=== PATIENT | male | born 1965 | race Hispanic/Latino ===

== ENCOUNTER → 2018-05-18 | Day surgery (SDC) | payer OTHER ==
[~2018-05-18] MED LIST: BUPIVACAINE HCL 0.5% INJ 30 ML VIAL INJ ONE; CEFAZOLIN SOD 2 GM/D5W 50ML 50 ML IV ONE; DEXAMETHASONE SOD PHOS INJ 4 MG/ML VIAL ONE; FENTANYL CITRATE/PF 100MCG/2 ML INJ ONE; GLYCOPYRROLATE INJ 1MG/ 5 ML SYR ONE; KETOROLAC TROMETHAMINE 30 MG/ML VIAL ONE; LIDOCAINE HCL 2% LOCAL INJ 5 ML SDV VIAL INJ ONE; MEPERIDINE HCL INJ 50 MG/ML INJ ONE; MIDAZOLAM HCL 2 MG/2 ML VIAL ONE; MUPIROCIN 2% OINT 22 GM TUBE ONE; ONDANSETRON HCL INJ 2 MG/ML VIAL ONE; PROPOFOL IV EMULSION 10 MG/ML 20 ML VIAL ONE; SEVOFLURANE INHAL SOLN 250 ML PEN BTL ONE
--- NOTE | 2018-05-18 10:53 | Operative Report ---
DATE OF PROCEDURE: May 18, 2018 PREOPERATIVE DIAGNOSES 1. Posterior tibial PTTD, stage 3. 2. Coalition, subtalar joint, posterior facet. 3. 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 4. Equinus gastrocnemius, right foot. 5. Posterior tibial tendon longitudinal tear, right foot. PARTITION MAKING MACHINE OPERATOR: Giorgi Gallego DPM ANESTHESIA: General anesthetic with local block consisting of 20 mL given postop. COMPLICATIONS: None. PROCEDURE: Stable. MATERIALS: Bioform 10 mL, AlloWrap, DS, wet 2 x 4 for posterior tibial tendon, Bioform for augmentation of the arthrodesis. T-N fusion 4.0 x36mm screw. An EC staple, lot number [id number]. Subtalar fusion screw 7.0x 80 mm screw. PROCEDURES 1. Subtalar joint fusion. 2. Talonavicular fusion. 3. Gastrocnemius resection. 4. Resection of coalition of subtalar joint. 5. Repair of posterior tibial tendon with augmentation with a AlloWrap. 6. Application of posterior splint. 7. Use of human allograft. PATHOLOGY: None. PROCEDURE IN DETAIL: Under mild sedation, the patient was brought to the operating room and placed on the operating table in the supine position. Following IV sedation, anesthesia was obtained with a general anesthetic. At this point, the foot was scrubbed, prepped and draped in the usual aseptic manner. The pneumatic thigh tourniquet was inflated to 350 mmHg. The leg was lowered to the table. Subtalar fusion, right. Attention was then directed to the medial aspect of the right foot where a curvilinear incision was made from the posterior and inferior distal aspect of the medial malleolus curving down into the navicular cuneiform joint. The incision was deepened via sharp and blunt dissection taking care to retract and cauterize neurovascular structures as necessary. Special care was taken not to disrupt the deltoid ligament on the medial aspect of the foot. Once the incision was deepened down to the level of the posterior tibial tendon, at this moment the posterior tibial tendon seemed to be denuded. There seemed to be nonviable tissue. All nonviable tissue was removed. The tendon was then elevated, and it was augmented with an AlloWrap graft. This was done after the subtalar NT infusion. Attention was then directed to the subtalar joint where once the joint was isolated clinically and with the use of intraoperative fluoroscopy, the joint was prepared for arthrodesis. All cartilage was removed. Once all cartilage was removed and the joint was prepared, it was then fenestrated with a 2-0 drill popping the subchondral plane and preparing the whole subtalar joint in order to promote arthrodesis. At this point, the Bioform was impacted into it. A 7-0 screw was used with the subtalar joint in a neutral position. There was noted to be adequate alignment clinically. With the use of intraoperative fluoroscopy, the 2nd metatarsal was directly down into the tibial crest. There was noted to be adequate completion clinically, and with the intraoperative fluoroscopy with a 7-0, 80-mm screw following standard AO fixation. Attention was then directed to the talonavicular joint where the joint was noted and prepared in order for arthrodesis. The joint was also fenestrated with a 2-0 drill popping through the subchondral joint down to clean, viable bleeding bone. Bioform was then inserted in order to promote healing of the area. A 4-0 screw times 36, and an 18-mm staple was then used in order to fuse the TN joint. There was noted to be adequate compression clinically and with the use of intraoperative fluoroscopy. At this point, the area was then flushed with copious amounts of normal sterile saline solution. A Roberta type of Gastroc was performed before beginning the fusion in order to release the contracture of the Ankle and ST joint and in order to be able to locate the joints back into anatomical position. Please note that when the subtalar joint was being prepared for fusion, there was a coalition noted at the posterior facet of the joint. The coalition was resected also in prepare the joint for arthrodesis. The areas were then flushed with copious amounts of normal sterile saline solution. The areas were then flushed with sterile saline solution. The area was then closed closing the deepest layers with 2-0 Vicryl, 3-0 Vicryl, 4-0 Vicryl, and then felipe for the medial aspect, and nylon for the posterior aspect of the aponeurosis of the Achilles tendon. All incisions were then dressed with sterile compressive dressing consisting of Adaptic, 4 x 4's, Kerlix, and an Quang bandage. The tourniquet had been deflated. A TLS drain had been applied. There was noted to be hyperemic response to all digits. The patient tolerated the procedure and anesthesia well without complications. Was transferred to the recovery room with vital signs stable and vascular status intact to both feet. The patient will be discharged home when he meets criteria. He was given instructions to be strictly nonweightbearing, and to ice and elevate the foot while at rest. Follow up with me in the office, and to call the office if there are any questions, concerns or any problems arise. Job#: [id number] BEAU DILLARD
== END | disposition home or self-care (01) ==
LOC: OR 05:21
PROVIDERS: ATTEND Podiatrist Foot & Ankle Surgery
DX: M19.071 Primary osteoarthritis, right ankle and foot (principal); S96.811A Strain of other specified muscles and tendons at ankle and foot level, right foot, initial encounter; M76.821 Posterior tibial tendinitis, right leg; M21.6X1 Other acquired deformities of right foot; I45.10 Unspecified right bundle-branch block; R00.1 Bradycardia, unspecified; X58.XXXA Exposure to other specified factors, initial encounter; Z01.810 Encounter for preprocedural cardiovascular examination
CPT/HCPCS: 27687; 28200; 28725; 28740; 76001; 93005; C1713 ×4; J1100; J1885; J2001; J2175; J2250; J2405; J3490; Q4150

== ENCOUNTER → 2019-01-08 | Day surgery (SDC) | payer OTHER ==
[~2019-01-08] MED LIST changes: +ACETAMINOPHEN 1000 MG/100 ML IV ONE; +BUPIVACAINE 0.25% 30ML SDV INJ ONE; -BUPIVACAINE HCL 0.5% INJ 30 ML VIAL INJ ONE; -GLYCOPYRROLATE INJ 1MG/ 5 ML SYR ONE; -MEPERIDINE HCL INJ 50 MG/ML INJ ONE; -ONDANSETRON HCL INJ 2 MG/ML VIAL ONE; +ONDANSETRON HCL INJ 2MG/ML 2ML 2 MG/ML VIAL ONE; +PERCOCET 10-321 EACH PO
[2019-01-08 10:25] VITALS: BP 120/82
--- NOTE | 2019-01-08 17:36 | Operative Report ---
DATE OF PROCEDURE: 01/08/2019 SURGEON: Brianna Claros DPM PREOPERATIVE DIAGNOSES: 1. Hallux abductovalgus, right foot. 2. Hallux interphalangeus, right foot. 3. Plantarflexed elongated second right. POSTOPERATIVE DIAGNOSES: 1. Hallux abductovalgus, right foot. 2. Hallux interphalangeus, right foot. 3. Plantarflexed elongated second right. PROCEDURES: 1. Decompression first metatarsal osteotomy, right foot. 2. Lucian osteotomy, right foot. 3. Plantarflexory decompression osteotomy, second right. 4. Application of human allograft to prevent adhesions, to decrease the inflammatory response, and to decrease chance of adhesions. COMPLICATIONS: None. CONDITION: Stable. HEMOSTASIS: Pneumatic ankle tourniquet. ESTIMATED BLOOD LOSS: Less than 10 mL. MATERIALS: 1. A 12 x 10 x 10 mm compression staple. 2. Allograft 4 cm, lot [id number], expiration April 11, 2020. 3. Screw sets are 2.0 x 16, 2.5 x 16, and 2.7 x 20 snap screw. PROCEDURE IN DETAIL: Under normal sedation, the patient was brought to the operating room and placed on the operating table in supine position. Following IV sedation, anesthesia was obtained with a general anesthetic. At this point, the right foot was scrubbed, prepped and draped in the usual aseptic manner. A pneumatic ankle was inflated to 250 mmHg and the leg was lowered to the table. First metatarsal decompression osteotomy: Attention was then directed to the medial and dorsal aspect of the right foot where a linear incision was made overlying the first metatarsophalangeal joint. The incision was deepened via sharp and blunt dissection down to the level of the joint. At this point, a linear capsulotomy was then performed. There was noted to be a large amount of synovitis at the first MPJ and some osteophytes were noted medially. Utilizing an oscillating saw, the medial exostosis was then removed. Then a first metatarsal decompression osteotomy was performed in order to decompress the first MPJ. Two screws were used to fix it, 2.0 x 16 and 2.5 x 16. There was noted to be good compression clinically with the use of intraoperative fluoroscopy. Lucian osteotomy: Attention was then directed to the proximal phalanx where the capsule was reflected off the first phalanx and Lucian osteotomy was then performed through and through. It was then secured utilizing 12 x 10 x 10 mm staple. There was noted to be adequate alignment clinically with the use of intraoperative fluoroscopy. Tatum osteotomy second: Attention was then directed to the dorsal aspect of the second where linear incision was made overlying the second and linear capsulotomy was then performed, taking care to retract all cardiovascular and neurovascular structures as necessary. It was deepened down to the level of the metatarsal and large amount of synovial tissue was noted from the area. Unviable tissue was removed and dorsiflexed ray osteotomy was performed to decrease the compression on the osteotomy. It was then fixated utilizing a 2.7 x 20 snap screw. There was noted to be adequate compression clinically with the use of intraoperative fluoroscopy. A K-wire was then inserted in order to keep the second MPJ in an anatomical position while healing. All areas were then flushed with copious amount of normal sterile solution. An allograft was then inserted into the incisions in order to prevent adhesions and to promote healing of the areas. The areas were then closed, closing the capsule with 2-0 Vicryl, 3-0 Vicryl, and 4-0 nylon. Alida dressing was applied consisting of antibiotic ointment, 4x4, Kerlix, and an Quang bandage. The tourniquet was deflated and there was noted to be hyperemic response to all the digits. The patient tolerated the procedure and anesthesia well without complications, was transported to the recovery room with vital signs stable and vascular status intact to both feet. The patient will be discharged home when he meets the criteria. He was given instructions to be weightbearing with the use of a postop shoe. He will use his compression pumps to prevent the DVT. He also has a history of PE. He will begin to use Lovenox when he gets home today. He knows the signs and symptoms of DVT and PE. He will call the office if any questions, concerns, or new problems arise. LUCHO Guevara/FUAD /[id number]
--- OUTSIDE RECORDS SUMMARY | 2019-01-09 10:19 | XMS REPORT | Clinical Summary ---
Author Author [employer] [facility] [employer] Address Unknown Phone Unavailable Care Team Providers Care President & Founder Name Role Phone Shira Logan DO PCP Allergies No Known Allergies Medications End Date Status Medication Sig Dispensed Refills Start Date Active HYDROcodone-acetaminophen Take 1 tablet 0 (NORCO) 5-325 mg per by mouth tablet every 6 (six) hours as needed for moderate pain. Active oxyCODone-acetaminophen Take 1 tablet 0 (PERCOCET) 10-325 mg per by mouth tablet every 4 (four) hours as needed for moderate pain. Active cephalexin (KEFLEX) 500 Take 500 mg 0 05/18/201 MG capsule by mouth 2 8 (two) times a day. 05/27/2018 Discontinued enoxaparin (LOVENOX) 40 Inject 40 mg 0 mg/0.4 mL syringe under the skin daily. 06/26/2018 rivaroxaban (XARELTO) 15 Follow 1 Package 0 05/27/201 mg (42)- 20 mg (9) package 8 instructions Active Problems Problem Noted Date Pulmonary embolus 05/24/2018 Encounters Care Team Description Date Type Specialty Nagi Nayak, PharmD 05/28/2018 Patient Quality Outreach Jimbo Bowers MD Bavare, Arusha Amod, MD Patel, Sarahi Reina MD Other acute pulmonary embolism without acute cor pulmonale (Primary Dx) 05/23/2018 [facility] General Internal Medicine - Encounter 05/27/2018 after 01/08/2018 Social History Date Tobacco Use Types Packs/Day Years Used Never Smoker Smokeless Tobacco: Never Used Alcohol Use Drinks/Week oz/Week Comments No Sex Assigned at Date Recorded Not on file Industry Job Start Date Occupation Not on file Not on file Not on file Travel End Travel History Travel Start No recent travel history available. Last Filed Vital Signs Time Taken Vital Sign Reading 05/27/2018 7:03 AM CDT Blood Pressure 131/83 05/27/2018 7:03 AM CDT Pulse 71 05/27/2018 7:03 AM CDT Temperature 36.8 C (98.2 F) 05/27/2018 7:03 AM CDT Respiratory Rate 20 05/27/2018 7:03 AM CDT Oxygen Saturation 97% - Inhaled Oxygen - Concentration 05/23/2018 11:13 PM CDT Weight 94.3 kg (208 lb) 05/23/2018 11:13 PM CDT Height 172.7 cm (5' 8") 05/23/2018 11:13 PM CDT Body Mass Index 31.63 Plan of Treatment Health Maintenance Due Date Last Done Comments COLON CANCER SCREENING 2017 SHINGLES VACCINES (#1) 2017 INFLUENZA VACCINE 06/13/2018 Procedures Comments Procedure Name Priority Date/Time Associated Diagnosis CV ECHO 2D FOLLOW UP OR STAT 05/26/2018 LIMITED STUDY 1:23 PM CDT ANTI XA, UNFRACTIONATED Routine 05/25/2018 4:30 AM CDT HC COMPLETE BLD COUNT Routine 05/25/2018 W/AUTO DIFF 4:30 AM CDT ANTI XA, UNFRACTIONATED Routine 05/24/2018 8:20 PM CDT US DUPLEX VENOUS LOWER Routine 05/24/2018 EXTREMITY BILATERAL 5:30 PM CDT ANTI XA, UNFRACTIONATED Routine 05/24/2018 1:27 PM CDT ECHOCARDIOGRAM 2D Routine 05/24/2018 COMPLETE W MMODE SPECTRAL 11:55 AM CDT COLOR DOPPLER ([id number]) TROPONIN STAT 05/24/2018 8:45 AM CDT B NATRIURETIC PEPTIDE Routine 05/24/2018 8:[address] ANGIOGRAM PE CHEST STAT 05/24/2018 2:40 AM CDT ECG 12-LEAD STAT 05/24/2018 2:05 AM CDT ZZESTIMATED GFR STAT 05/24/2018 12:20 AM CDT VENOUS BLOOD GAS STAT 05/24/2018 12:20 AM CDT MAGNESIUM LEVEL STAT 05/24/2018 12:20 AM CDT PHOSPHORUS LEVEL STAT 05/24/2018 12:20 AM CDT BASIC METABOLIC PANEL STAT 05/24/2018 12:20 AM CDT URINALYSIS SCREEN AND STAT 05/24/2018 MICROSCOPY, WITH REFLEX 12:20 AM CDT TO CULTURE TYPE AND SCREEN Routine 05/24/2018 12:20 AM CDT PARTIAL THROMBOPLASTIN STAT 05/24/2018 TIME (PTT) 12:20 AM CDT PROTHROMBIN TIME WITH INR STAT 05/24/2018 12:20 AM CDT HC COMPLETE BLD COUNT STAT 05/24/2018 W/AUTO DIFF 12:20 AM CDT URINE CULTURE STAT 05/24/2018 12:20 AM CDT BLOOD CULTURE, AEROBIC & Routine 05/24/2018 ANAEROBIC 12:20 AM CDT XR CHEST 1 VW PORTABLE STAT 05/24/2018 12:05 AM CDT ECG ED PRELIMINARY Routine 05/23/2018 INTERPRETATION 11:43 PM CDT MT CRITICAL CARE, E/M Routine 05/23/2018 30-74 MINUTES 11:43 PM CDT after 01/08/2018 Results * Echocardiogram 2d limited (05/26/2018 1:23 PM CDT) [facility]ative [facility] [id number] [facility], [facility] [address], [place] [address] Pat.Name:PHUONG HARDIN.ID:[id number] .Date: 05/26/2018 Refer.MD:SARAHI DUTTA MD Exam Time: 11:04:00 AM Study Type:Routine Echo Height:68inWeight:208lb BSA: 2.08 m2 DOBAge:1965,52Y Sex: MALEBP:128/85 HR:74 bpmSonogrphr: ASHVIN Gregory. Stat.:Inpatient Room:[facility] Study Status:Final Echo Event ID:[id number] Order ID:[id number] Reason for Study:RIGHT HEART STRAIN Procedures:Portable, Stat, 2D Echo Limited Race:C SUMMARY: Limited mostly 2D study. -LV EF is normal. Estimated EF is 60-64%. -RV size is upper limits of normal. RV systolic function is normal. -Insufficient TR jet to estimate PA systolic pressure. FINDINGS: LV: LV size is normal. LV EF is normal. Overall wall motion is normal.Estimated EF is 60-64%. RV: RV size is upper limits of normal. RV systolic function is normal. LA: LA size is normal. RA: RA size is normal. AO: Aortic root diameter is normal. REENA: No pericardial effusion. AV: No structural AV abnormalities noted. MV: No structural MV abnormalities noted. PV: Pulmonic valve not well seen. TV: No structural TV abnormalities noted. Villagran: Unable to assess diastolic function. Other:Insufficient TR jet to estimate PA systolic pressure. MEASUREMENTS: 2D Parasternal Long Regina LVOT 2 cmLA Ds3.2 cm LVIDd4.8 cmIndex2.3 cm/m Ao An2 cm LVIDs2.7 cmAo Rtd 3.5 cm Index1.7 cm/m LV%fs 43.5 % LV Epls091.8 g(122-174) IVSd 1.2 cmLVM Eytpn666.2 g/m2 LVPWd1.2 cmRWT0.5 LA Sng Plane LA Area 17.9 cm2(8.8-23.4) LA Vol53.1 ml Index25.5 ml/m LA LngAx 4.8 cm RA Sng Plane RA Area 20.9 cm2(8.3-19.5) RA Vol66 ml Index31.7 ml/m RA LngAx 5.4 cm Signed 05/26/2018 03:14 PM Richy Reno M.D. Procedure Note Interface, Radiology Results In - 05/26/2018 3:14 PM CDT Echocardiography Report [id number]Name: PHUONG HARDIN Pat.ID: [id number] .Date: 05/26/2018 Refer.MD: SARAHI DUTTA MD Exam Time: 11:04:00 AM Study Type:Routine Echo Height: 68in Weight: 208lb BSA: 2.08 m2 Age: 13 1965,52Y Sex: MALE BP: 128/85 HR: 74 bpm Sonogrphr: ASHVIN Gregory Pat. Stat.:Inpatient Room: [facility] Study Status:Final Echo Event ID:[id number] Order ID: [id number] Reason for Study:RIGHT HEART STRAIN Procedures:Portable, Stat, 2D Echo Limited Race: C SUMMARY: Limited mostly 2D study. -LV EF is normal. Estimated EF is 60-64%. -RV size is upper limits of normal. RV systolic function is normal. -Insufficient TR jet to estimate PA systolic pressure. FINDINGS: LV: LV size is normal. LV EF is normal. Overall wall motion is normal. Estimated EF is 60-64%. RV: RV size is upper limits of normal. RV systolic function is normal. LA: LA size is normal. RA: RA size is normal. AO: Aortic root diameter is normal. REENA: No pericardial effusion. AV: No structural AV abnormalities noted. MV: No structural MV abnormalities noted. PV: Pulmonic valve not well seen. TV: No structural TV abnormalities noted. Villagran: Unable to assess diastolic function. Other: Insufficient TR jet to estimate PA systolic pressure. MEASUREMENTS: 2D Parasternal Long Regina LVOT 2 cm LA Ds 3.2 cm LVIDd 4.8 cm Index 2.3 cm/m Ao An 2 cm LVIDs 2.7 cm Ao Rtd 3.5 cm Index 1.7 cm/m LV%fs 43.5 % LV Mass 216.8 g (122-174) IVSd 1.2 cm LVM Index 104.2 g/m2 LVPWd 1.2 cm RWT 0.5 LA Sng Plane LA Area 17.9 cm2 (8.8-23.4) LA Vol 53.1 ml Index 25.5 ml/m LA LngAx 4.8 cm RA Sng Plane RA Area 20.9 cm2 (8.3-19.5) RA Vol 66 ml Index 31.7 ml/m RA LngAx 5.4 cm Signed 05/26/2018 03:14 PM Richy Reno M.D. Performing Organization Address City/State/Zipcode Phone Number [facility] [address] [place] [address] * Anti Xa, unfractionated (05/25/2018 4:30 AM CDT) Only the most recent of 3 results within the time period is included. Anti Xa, unfractionated 0.41Comment: Therapeutic 0.30 - 0.70 U/mL [facility] DEPARTMENT OF Range: 0.30 - 0.70 U/mL PATHOLOGY AND GENOMIC MEDICINE Specimen Blood Performing Organization Address City/State/Zipcode Phone Number [facility] DEPARTMENT OF [address] [place] [address] PATHOLOGY AND GENOMIC MEDICINE * CBC with platelet and differential (05/25/2018 4:30 AM CDT) Only the most recent of 2 results within the time period is included. WBC 8.57 4.50 - 11.00 k/uL [facility] DEPARTMENT OF PATHOLOGY AND GENOMIC MEDICINE RBC 4.71 4.40 - 6.00 m/uL [facility] DEPARTMENT OF PATHOLOGY AND GENOMIC MEDICINE HGB 13.6 (L) 14.0 - 18.0 g/dL [facility] DEPARTMENT OF PATHOLOGY AND GENOMIC MEDICINE HCT 39.4 (L) 41.0 - 51.0 % [facility] DEPARTMENT OF PATHOLOGY AND GENOMIC MEDICINE MCV 83.7 82.0 - 100.0 fL [facility] DEPARTMENT OF PATHOLOGY AND GENOMIC MEDICINE MCH 28.9 27.0 - 34.0 pg [facility] DEPARTMENT OF PATHOLOGY AND GENOMIC MEDICINE MCHC 34.5 31.0 - 37.0 g/dL [facility] DEPARTMENT OF PATHOLOGY AND GENOMIC MEDICINE RDW - SD 40.9 37.0 - 55.0 fL [facility] DEPARTMENT OF PATHOLOGY AND GENOMIC MEDICINE MPV 10.2 8.8 - 13.2 fL [facility] DEPARTMENT OF PATHOLOGY AND GENOMIC MEDICINE Platelet count 284 150 - 400 k/uL [facility] DEPARTMENT OF PATHOLOGY AND GENOMIC MEDICINE Nucleated RBC 0.00 /100 WBC [facility] DEPARTMENT OF PATHOLOGY AND GENOMIC MEDICINE Neutrophils 64.4 39.0 - 69.0 % [facility] DEPARTMENT OF PATHOLOGY AND GENOMIC MEDICINE Lymphocytes 20.3 (L) 25.0 - 45.0 % [facility] DEPARTMENT OF PATHOLOGY AND GENOMIC MEDICINE Monocytes 8.8 0.0 - 10.0 % [facility] DEPARTMENT OF PATHOLOGY AND GENOMIC MEDICINE Eosinophils 3.3 0.0 - 5.0 % [facility] DEPARTMENT OF PATHOLOGY AND GENOMIC MEDICINE Basophils 0.7 0.0 - 1.0 % [facility] DEPARTMENT OF PATHOLOGY AND GENOMIC MEDICINE Immature granulocytes 2.5 (H)Comment: "Immature 0.0 - 1.0 % [facility] DEPARTMENT OF granulocytes" (promyelocytes, PATHOLOGY AND myelocytes, metamyelocytes) GENOMIC MEDICINE Specimen Blood Performing Organization Address City/State/Zipcode Phone Number [facility] DEPARTMENT OF [address] [place] [address] PATHOLOGY AND GENOMIC MEDICINE * Pv duplex venous lower extremity (05/24/2018 5:30 PM CDT) Narrative Performed At [facility] Vascular Ultrasound Laboratory Lower Extremity Venous Report [id number] [facility] [address], [place] [address] Pat.Name:PHUONG HARDIN Pat.ID:[id number] St.Date: 05/24/2018 Refer.MD:SARAHI DUTTA MD Exam Time: 5:01:00 PMStudy Type:LE Venous DOBAge:1965,52Y Sex: MALE Sonogrphr: RADHA Duarte RCS Pat. Stat.:Inpatient Room:[address] TapeVol: GAUTAM, CPT - 4: 03853 Echo Event ID:[id number] Order ID:[id number] Reason for Study:Evaluate for DVT. Pulmonary embolism and shortness of breath. Procedures:Colorflow, Grayscale/2D, Pulsed wave Doppler Race:C SUMMARY: DUPLEX SCAN OBSERVATIONS Deep VeinsSuperficial Veins RightLeft RightLeft GSV (prox) NormalNormal CFV Normal Normal (above knee) Femoral Normal Normal GSV (dist) Normal Normal Profunda Normal Normal (below knee) Popliteal Normal Normal PT (prox) Obstructed NormalSSV Normal Normal PT (dist) Not Visualized Normal Peroneal Obstructed Normal RIGHT:One of the pairedposterior tibial and peroneal veins are dilated and non-compressible with echolucent material filling the lumen; color flow and Doppler signals are absent. The remaining visualized veins are patent with good compressibility, color flow and Doppler signals. LEFT: There is normal compressibility with no evidence of echogenic material noted within the lumen of the visualized veins. Colorflow and Doppler signals are normal. PRELIMINARY FINDINGS 1. Total acute deep vein thrombosis of one of the pairedposterior tibial and peroneal veins in the right lower extremity. 2. Preliminary results called to MAHENDRA Orr @ 0136 on 05/24/18. PHYSICIAN INTERPRETATION Venous examination of the both lower extremities demonstrated acute deep vein thrombosis of one of the paired right posterior tibial and right peroneal vein. Signed 05/25/2018 03:37 AM Domingo Pemberton MD, RPVI Procedure Note Interface, Radiology Results In - 05/25/2018 3:37 AM CDT Vascular Ultrasound Laboratory Lower Extremity Venous Report [address] [place] [address] Pat.Name: PHUONG HARDIN Pat.ID: [id number] .Date: 05/24/2018 Refer.MD: SARAHI DUTTA MD Exam Time: 5:01:00 PM Study Type:LE Venous Age: 11 1965,52Y Sex: MALE Sonogrphr: RADHA Duarte RCS Pat. Stat.:Inpatient Room: [address] Tape Vol: , CPT - 4: 82097 Echo Event ID:[id number] Order ID: [id number] Reason for Study:Evaluate for DVT. Pulmonary embolism and shortness of breath. Procedures:Colorflow, Grayscale/2D, Pulsed wave Doppler Race: C SUMMARY: DUPLEX SCAN OBSERVATIONS Deep Veins Superficial Veins Right Left Right Left GSV (prox) Normal Normal CFV Normal Normal (above knee) Femoral Normal Normal GSV (dist) Normal Normal Profunda Normal Normal (below knee) Popliteal Normal Normal PT (prox) Obstructed Normal SSV Normal Normal PT (dist) Not Visualized Normal Peroneal Obstructed Normal RIGHT: One of the paired posterior tibial and peroneal veins are dilated and non-compressible with echolucent material filling the lumen; color flow and Doppler signals are absent. The remaining visualized veins are patent with good compressibility, color flow and Doppler signals. LEFT: There is normal compressibility with no evidence of echogenic material noted within the lumen of the visualized veins. Colorflow and Doppler signals are normal. PRELIMINARY FINDINGS 1. Total acute deep vein thrombosis of one of the paired posterior tibial and peroneal veins in the right lower extremity. 2. Preliminary results called to MAHENDRA Orr @ 3716 on 05/24/18. PHYSICIAN INTERPRETATION Venous examination of the both lower extremities demonstrated acute deep vein thrombosis of one of the paired right posterior tibial and right peroneal vein. Signed 05/25/2018 03:37 AM Domingo Pemberton MD, RPVI Performing Organization Address City/State/Zipcode Phone Number [facility] [address] [place] [address] * Echocardiogram complete w contrast and 3D if needed (05/24/2018 11:55 AM CDT) Narrative Performed At [facility] Echocardiography Report [address]Name:PHUONG HARDIN Pat.ID:[id number] .Date: 05/24/2018 Refer.MD:SARAHI DUTTA MD Exam Time: 10:40:00 AM Study Type:Routine Echo Height:68inWeight:208lb BSA: 2.08 m2 DOBAge:1965,52Y Sex: MALEBP:135/91 HR:88 bpmSonogrphr: ASHVIN Hylton Pat. Stat.:Inpatient Room:[address] Study Status:Final Echo Event ID:[id number] Order ID:[id number] Reason for Study:Right Heart Strain Procedures:2D Echo, Colorflow Doppler, Strain, Intravenous Definity Contrast SUMMARY: RV size is mildly enlarged. RV systolic function is mild to moderately depressed. Unable to assess PA systolic pressure despite use of contrast. FINDINGS: LV: LV size is normal. LV EF is normal. Overall wall motion is normal.Estimated EF is 55-59%. RV: RV size is mildly enlarged. RV systolic function is mild to moderatelydepressed. RV wall motion is hypokinetic. LA: LA size is normal. RA: RA size is normal. AO: Aortic root diameter is normal. REENA: No pericardial effusion. AV: No structural AV abnormalities noted. MV: No structural MV abnormalities noted. PV: Pulmonic valve not well seen. A trace of pulmonic regurgitation. TV: No structural TV abnormalities noted. A trace of tricuspid regurgitation Villagran: LV relaxation is impaired. LV filling pressure is normal. Other:Insufficient TR jet to estimate PA systolic pressure. Unable toassess PA systolic pressure despite use of contrast. MEASUREMENTS: 2D Parasternal Long Regina Ao An2.3 cmLVPWd1 cm LVOT 2.2 cmLA Ds2.9 cm LVIDd4.5 cmIndex2.2 cm/m Ao Rtd 3.4 cm Index1.7 cm/m LVIDs2.9 cm LV Gcoq439.5 g(122-174) LV%fs 35.3 % LVM Index 84.8 g/m2 IVSd 1.2 cmRWT0.4 LA Sng Plane LA Area 19.2 cm2(8.8-23.4) LA Vol50.1 ml Index24.1 ml/m LA LngAx 6 cm RA Sng Plane RA Area 21.9 cm2(8.3-19.5) RA Vol60.5 ml Index29.1 ml/m RA LngAx 6.4 cm DOPPLER LVOT Stroke Vol LVOT 2.1 cmLVOT CO5.2 l/min LVOT TVI18.7 cmLVOT CI2.5 l/m/m2 LVOT Tm228 vwakAL09 bpm LVOT SV 64.8 ml RV S RV S Vel11.5 cm/s RV TAPSE TVI RV t TVI 1.9 cmRV t Flw Int 263 msec Signed 05/24/2018 05:58 PM Ritu Mustafa M.D. Procedure Note Interface, Radiology Results In - 05/24/2018 5:58 PM CDT Echocardiography Report [address] [place] [address] Pat.Name: PHUONG HARDIN Pat.ID: [id number] St.Date: 05/24/2018 Refer.MD: SARAHI DUTTA MD Exam Time: 10:40:00 AM Study Type:Routine Echo Height: 68in Weight: 208lb BSA: 2.08 m2 Age: 11 1965,52Y Sex: MALE BP: 135/91 HR: 88 bpm Sonogrphr: ASHVIN Hylton Pat. Stat.:Inpatient Room: [address] Study Status:Final Echo Event ID:[id number] Order ID: [id number] Reason for Study:Right Heart Strain Procedures:2D Echo, Colorflow Doppler, Strain, Intravenous Definity Contrast SUMMARY: RV size is mildly enlarged. RV systolic function is mild to moderately depressed. Unable to assess PA systolic pressure despite use of contrast. FINDINGS: LV: LV size is normal. LV EF is normal. Overall wall motion is normal. Estimated EF is 55-59%. RV: RV size is mildly enlarged. RV systolic function is mild to moderately depressed. RV wall motion is hypokinetic. LA: LA size is normal. RA: RA size is normal. AO: Aortic root diameter is normal. REENA: No pericardial effusion. AV: No structural AV abnormalities noted. MV: No structural MV abnormalities noted. PV: Pulmonic valve not well seen. A trace of pulmonic regurgitation. TV: No structural TV abnormalities noted. A trace of tricuspid regurgitation Villagran: LV relaxation is impaired. LV filling pressure is normal. Other: Insufficient TR jet to estimate PA systolic pressure. Unable to assess PA systolic pressure despite use of contrast. MEASUREMENTS: 2D Parasternal Long Regina Ao An 2.3 cm LVPWd 1 cm LVOT 2.2 cm LA Ds 2.9 cm LVIDd 4.5 cm Index 2.2 cm/m Ao Rtd 3.4 cm Index 1.7 cm/m LVIDs 2.9 cm LV Mass 176.5 g (122-174) LV%fs 35.3 % LVM Index 84.8 g/m2 IVSd 1.2 cm RWT 0.4 LA Sng Plane LA Area 19.2 cm2 (8.8-23.4) LA Vol 50.1 ml Index 24.1 ml/m LA LngAx 6 cm RA Sng Plane RA Area 21.9 cm2 (8.3-19.5) RA Vol 60.5 ml Index 29.1 ml/m RA LngAx 6.4 cm DOPPLER LVOT Stroke Vol LVOT 2.1 cm LVOT CO 5.2 l/min LVOT TVI 18.7 cm LVOT CI 2.5 l/m/m2 LVOT Tm 228 msec HR 80 bpm LVOT SV 64.8 ml RV S RV S Schuyler 11.5 cm/s RV TAPSE TVI RV t TVI 1.9 cm RV t Flw Int 263 msec Signed 05/24/2018 05:58 PM Ritu Mustafa M.D. Performing Organization Address City/State/Zipcode Phone Number [facility] [address] [place] [address] * Troponin (05/24/2018 8:45 AM CDT) Troponin <0.30 0.00 - 0.30 ng/mL [facility] DEPARTMENT OF Comment: PATHOLOGY AND 0.30 - 1.49 GENOMIC MEDICINE ng/mlMay indicate increased risk of acute coronary syndrome. >=1.5 ng/ml Consistent with acute myocardial infarction. The diagnostic value of a single normal or non-diagnostic result is questionable.Serial samples at 2-6 hour intervals are required to rule out acute myocardial injury. Specimen Plasma specimen Performing Organization Address City/State/Zipcode Phone Number [facility] DEPARTMENT OF [address] [place] [address] PATHOLOGY AND GENOMIC MEDICINE * B natriuretic peptide (05/24/2018 8:37 AM CDT) BNP 7 0 - 100 pg/mL [facility] DEPARTMENT OF PATHOLOGY AND GENOMIC MEDICINE Specimen Blood Performing Organization Address [facility] Phone Number [facility] DEPARTMENT [address] [address] PATHOLOGY AND [facility] Group MEDICINE * CT Angiogram Pe Chest (05/24/2018 2:40 AM CDT) Narrative Performed At CT ANGIOGRAM PE CHEST RADIANT CLINICAL INDICATION: chest pain COMPARISON:Chest radiograph 05/23/2018. TECHNIQUE:CT angiographic images of the chest were obtained during intravenous administration of iodinated contrast.Computerized, reformatted images and 3-D MIP images were obtained and archived (per CT pulmonary embolism protocol). CT scans are performed using radiation dose reduction techniques (iterative reconstruction and/or automated exposure control). Technical factors are evaluated and adjusted to ensure appropriate moderation of exposure. Automated dose management technology is applied to adjust radiation exposure while achieving a diagnostic quality image. FINDINGS: Pulmonary arteries: There is pulmonary embolism within right pulmonary artery extending to lobar and segmental branches.. The main pulmonary artery measures 29 mm in luminal diameter. Exam evaluation: Adequate Clot burden: Moderate Saddle embolus: No Ventricular septal bulging: No RV:LV: Less than 0.9 Aorta:No aneurysm or dissection. Lungs and large airways:Mild focal areas of groundglass opacity in the peripheral right lower lobe and right perihilar region. Pleura:No pleural effusion, pleural thickening, or pneumothorax. Heart and pericardium:Heart size is normal. No pericardial effusion. Mediastinum and alexander:No mass or hematoma. Lymph nodes:No pathological adenopathy in the alexander, axilla or mediastinum. Chest wall:Unremarkable. Bones:Mild degenerative changes Upper abdomen: Cholelithiasis. Small hiatal hernia. IMPRESSION: Pulmonary embolism within right proximal pulmonary artery. Moderate clot burden without imaging evidence of right heart strain. Mild groundglass opacities in the right lung may represent early infarcts. Findings discussed with DR. JIMBO BOWERS at 05/24/2018 2:46 AM, with acknowledgement of understanding. [facility]-[id number] Procedure Note [facility], Radiology Results Incoming - 05/24/2018 2:[address] ANGIOGRAM PE CHEST CLINICAL INDICATION: chest pain COMPARISON: Chest radiograph 05/23/2018. TECHNIQUE: CT angiographic images of the chest were obtained during intravenous administration of iodinated contrast. Computerized, reformatted images and 3-D MIP images were obtained and archived (per CT pulmonary embolism protocol). CT scans are performed using radiation dose reduction techniques (iterative reconstruction and/or automated exposure control). Technical factors are evaluated and adjusted to ensure appropriate moderation of exposure. Automated dose management technology is applied to adjust radiation exposure while achieving a diagnostic quality image. FINDINGS: Pulmonary arteries: There is pulmonary embolism within right pulmonary artery extending to lobar and segmental branches.. The main pulmonary artery measures 29 mm in luminal diameter. Exam evaluation: Adequate Clot burden: Moderate Saddle embolus: No Ventricular septal bulging: No RV:LV: Less than 0.9 Aorta: No aneurysm or dissection. Lungs and large airways: Mild focal areas of groundglass opacity in the peripheral right lower lobe and right perihilar region. Pleura: No pleural effusion, pleural thickening, or pneumothorax. Heart and pericardium: Heart size is normal. No pericardial effusion. Mediastinum and alexander: No mass or hematoma. Lymph nodes: No pathological adenopathy in the alexander, axilla or mediastinum. Chest wall: Unremarkable. Bones: Mild degenerative changes Upper abdomen: Cholelithiasis. Small hiatal hernia. IMPRESSION: Pulmonary embolism within right proximal pulmonary artery. Moderate clot burden without imaging evidence of right heart strain. Mild groundglass opacities in the right lung may represent early infarcts. Findings discussed with DR. JIMBO BOWERS at 05/24/2018 2:46 AM, with acknowledgement of understanding. [facility]-[id number] Performing Organization Address City/[facility]/Zipcode Phone Number [facility] [address] [place] [address] * ECG 12 lead (05/24/2018 2:05 AM CDT) Ventricular rate 88 [facility] MUSE Atrial rate 88 [facility] MUSE MT interval 182 [facility] MUSE QRSD interval 138 [facility] MUSE QT [facility] 380 [facility] MUSE QTC interval 459 [facility] MUSE P axis 1 38 [facility] MUSE QRS axis 1 42 [facility] MUSE T wave axis 16 [facility] MUSE EKG impression Normal sinus rhythm-Right [facility] MUSE bundle branch block-Abnormal ECG-No previous ECGs available- Performing Organization Address [facility] Phone Number [facility] MUSE [address] [place] [address] * Urinalysis screen and microscopy, with reflex to culture (05/24/2018 12:20 AM CDT) Specimen site Clean catch [facility] DEPARTMENT OF PATHOLOGY AND GENOMIC MEDICINE Color, UA Colorless [facility] DEPARTMENT OF PATHOLOGY AND GENOMIC MEDICINE Appearance, UA Clear [facility] DEPARTMENT OF PATHOLOGY AND GENOMIC MEDICINE Specific gravity, UA 1.006 1.001 - 1.035 [facility] DEPARTMENT OF PATHOLOGY AND GENOMIC MEDICINE pH, UA 7.0 5.0 - 8.5 [facility] DEPARTMENT OF PATHOLOGY AND GENOMIC MEDICINE Protein, UA Negative Negative [facility] DEPARTMENT OF PATHOLOGY AND GENOMIC MEDICINE Glucose, UA Negative Negative [facility] DEPARTMENT OF PATHOLOGY AND GENOMIC MEDICINE Ketones, UA Negative Negative [facility] DEPARTMENT OF PATHOLOGY AND GENOMIC MEDICINE Bilirubin, UA Negative Negative [facility] DEPARTMENT OF PATHOLOGY AND GENOMIC MEDICINE Blood, UA Negative Negative [facility] DEPARTMENT OF PATHOLOGY AND GENOMIC MEDICINE Nitrite, UA Negative Negative [facility] DEPARTMENT OF PATHOLOGY AND GENOMIC MEDICINE Urobilinogen, UA <2.0 <2.0 [facility] DEPARTMENT OF PATHOLOGY AND GENOMIC MEDICINE Leukocyte esterase, UA Negative Negative [facility] DEPARTMENT OF PATHOLOGY AND GENOMIC MEDICINE WBC, UA None seen 0 - 1 /HPF [facility] DEPARTMENT OF PATHOLOGY AND GENOMIC MEDICINE RBC, UA <1 0 - 5 /HPF [facility] DEPARTMENT OF PATHOLOGY AND GENOMIC MEDICINE Bacteria, UA None seen None seen [facility] DEPARTMENT OF PATHOLOGY AND GENOMIC MEDICINE Yeast, UA None seen [facility] DEPARTMENT OF PATHOLOGY AND GENOMIC MEDICINE Yeast with pseudohyphae, None seen [facility] DEPARTMENT OF UA PATHOLOGY AND GENOMIC MEDICINE Specimen Urine Performing Organization Address [facility] Cent[facility]ode Phone Number [facility] [place] [address] PATHOLOGY AND GENOMIC MEDICINE * Estimated GFR (05/24/2018 12:20 AM CDT) GFR Non Af Amer 89 mL/min/1.73 m2 [facility] DEPARTMENT OF PATHOLOGY AND GENOMIC MEDICINE GFR Af Amer >90 mL/min/1.73 m2 [facility] DEPARTMENT OF Comment: PATHOLOGY AND Chronic kidney disease: <60 GENOMIC MEDICINE mL/min/1.73m2 Kidney failure: <15 mL/min/1.73m2 The estimated GFR is calculated from the IDMS-traceable Modification of Diet in Renal Disease Equation. The accuracy of the calculation is poor when the creatinine is normal. Calculated values >90 mL/min/1.73m2 are not reported. This equation has not been validated in children (<18 years), women, the elderly (>70 years), or ethnic groups other than Caucasians and Americans. Specimen Plasma specimen Performing Organization Address [facility] Cent[facility]ode Phone Number [facility] [place] [address] PATHOLOGY AND [facility] MEDICINE * Blood culture, aerobic & anaerobic (05/24/2018 12:20 AM CDT) Blood culture isolate No growth after 5 days of [facility] DEPARTMENT OF incubation. PATHOLOGY AND Comment: GENOMIC MEDICINE Specimen Information Specimen Source: Blood Specimen Site: Antecubital, right Specimen Blood - Antecubital, right Performing Organization Address [facility] Centercode Phone Number [facility] [place] [address] PATHOLOGY AND GENOMIC MEDICINE * Partial thromboplastin time, activated (05/24/2018 12:20 AM CDT) PTT 34.0 23.0 - 36.0 sec [facility] DEPARTMENT OF Comment: PATHOLOGY AND PTT therapeutic range for GENOMIC MEDICINE unfractionated heparin is 61.0-112.0 seconds which corresponds to Anti-Xa 0.3-0.7 U/ml. Specimen Blood Performing Organization Address City/[facility]/Zipcode Phone Number [facility] [place] [address] PATHOLOGY AND GENOMIC MEDICINE * Prothrombin time with INR (05/24/2018 12:20 AM CDT) Prothrombin time 13.3 12.0 - 15.0 sec [facility] DEPARTMENT OF PATHOLOGY AND GENOMIC MEDICINE INR 1.0 [facility] DEPARTMENT OF Comment: PATHOLOGY AND The International Normalized GENOMIC MEDICINE Ratio (INR) is a therapeutic monitoring tool for patients who are stable on oral anticoagulant therapy. An INR of 2.0-3.0 is suggested for deep vein thrombosis/pulmonary embolism. Specimen Blood Performing Organization Address City/[facility]/[place] [address] PATHOLOGY AND GENOMIC MEDICINE * Type and screen (05/24/2018 12:20 AM CDT) ABO grouping A [facility] DEPARTMENT OF PATHOLOGY AND GENOMIC MEDICINE Rh type POS [facility] DEPARTMENT OF PATHOLOGY AND GENOMIC MEDICINE Antibody screen (gel) NEG [facility] DEPARTMENT OF PATHOLOGY AND GENOMIC MEDICINE Specimen Blood Performing Organization Address City/[facility] [place] [address] PATHOLOGY AND GENOMIC MEDICINE * Urine culture (05/24/2018 12:20 AM CDT) Urine culture SEE COMMENTComment: [facility] DEPARTMENT OF Bacteriuria screen negative. PATHOLOGY AND GENOMIC MEDICINE Performing Organization Address City/[facility] Cent[facility]ode Phone Number [facility] [place] [address] PATHOLOGY AND GENOMIC MEDICINE * Phosphorus level (05/24/2018 12:20 AM CDT) Phosphorus 3.0 2.4 - 4.5 mg/dL [facility] DEPARTMENT OF PATHOLOGY AND GENOMIC MEDICINE Specimen Plasma specimen Performing Organization Address City/[facility] [place] [address] PATHOLOGY AND GENOMIC MEDICINE * Magnesium level (05/24/2018 12:20 AM CDT) Magnesium 2.1 1.6 - 2.6 mg/dL [facility] DEPARTMENT OF PATHOLOGY AND GENOMIC MEDICINE Specimen Plasma specimen Performing Organization Address City/[facility] [place] [address] PATHOLOGY AND GENOMIC MEDICINE * Venous blood gas (05/24/2018 12:20 AM CDT) pH, venous 7.40 7.32 - 7.42 [facility] DEPARTMENT OF PATHOLOGY AND GENOMIC MEDICINE pCO2, venous 43 (L) 45 - 51 mmHg [facility] DEPARTMENT OF PATHOLOGY AND GENOMIC MEDICINE pO2, venous 44 (H) 25 - 40 mmHg [facility] DEPARTMENT OF PATHOLOGY AND GENOMIC MEDICINE Base excess, venous 2 -2 - 2 meq/L [facility] DEPARTMENT OF PATHOLOGY AND GENOMIC MEDICINE O2 saturation, venous 77 (H) 40 - 70 % [facility] DEPARTMENT OF PATHOLOGY AND GENOMIC MEDICINE Bicarbonate, venous 26.5 21.0 - 28.0 mmol/L [facility] DEPARTMENT OF PATHOLOGY AND GENOMIC MEDICINE Specimen Blood Performing Organization Address City/[facility] [place] [address] PATHOLOGY AND GENOMIC MEDICINE * Basic metabolic panel (05/24/2018 12:20 AM CDT) Sodium 138 135 - 148 mEq/L [facility] DEPARTMENT OF PATHOLOGY AND GENOMIC MEDICINE Potassium 4.0 3.5 - 5.0 mEq/L [facility] DEPARTMENT OF PATHOLOGY AND GENOMIC MEDICINE Chloride 99 98 - 112 mEq/L [facility] DEPARTMENT OF PATHOLOGY AND GENOMIC MEDICINE CO2 27 24 - 31 mEq/L [facility] DEPARTMENT OF PATHOLOGY AND GENOMIC MEDICINE Anion gap 12@ANIO 7 - 15 mEq/L [facility] DEPARTMENT OF PATHOLOGY AND GENOMIC MEDICINE BUN 13 6 - 20 mg/dL [facility] DEPARTMENT OF PATHOLOGY AND GENOMIC MEDICINE Creatinine 0.9 0.7 - 1.2 mg/dL [facility] DEPARTMENT OF PATHOLOGY AND GENOMIC MEDICINE Glucose 122 (H) 65 - 99 mg/dL [facility] DEPARTMENT OF PATHOLOGY AND GENOMIC MEDICINE Calcium 9.3 8.3 - 10.2 mg/dL [facility] DEPARTMENT OF PATHOLOGY AND GENOMIC MEDICINE Specimen Plasma specimen Performing Organization Address [facility] [place] [address] PATHOLOGY AND GENOMIC MEDICINE * XR Chest 1 Vw Portable (05/24/2018 12:05 AM CDT) Narrative Performed At EXAMINATION: XR CHEST 1 VW PORTABLE [facility] CLINICAL HISTORY: Chest Pain COMPARISON:None. IMPRESSION: The lungs are clear. No pleural effusion or pneumothorax. Cardiac silhouette appears prominent due in part to technique. No acute osseous abnormalities. [facility]-[id number] Procedure Note Interface, Radiology Results Incoming - 05/24/2018 12:10 AM CDT EXAMINATION: XR CHEST 1 VW PORTABLE CLINICAL HISTORY: Chest Pain COMPARISON: None. IMPRESSION: The lungs are clear. No pleural effusion or pneumothorax. Cardiac silhouette appears prominent due in part to technique. No acute osseous abnormalities. [facility]-[id number] Performing Organization Address City/[facility] Centercode Phone Number [facility] [address] [place] [address] * ECG ED Preliminary Interpretation - NOT AN ORDER (05/23/2018 11:43 PM CDT) Narrative Performed At Jimbo Bowers MD 05/25/20182:16 PM ECG ED Preliminary Interpretation - Not an Order Performed by: JIMBO BOWERS Authorized by: JIMBO BOWERS ECG reviewed by ED Physician in the absence of a configuration management manager: yes Previous ECG: Previous ECG:Unavailable Interpretation: Interpretation: abnormal Rate: ECG rate:88 ECG rate assessment: normal Rhythm: Rhythm: sinus rhythm QRS: QRS axis:Normal QRS intervals:Normal Conduction: Conduction: abnormal Abnormal conduction: complete RBBB ST segments: ST segments:Normal T waves: T waves: inverted Inverted:III * CRITICAL CARE (05/23/2018 11:43 PM CDT) Narrative Performed At Jimbo Bowers MD 05/25/20182:16 PM Critical Care Performed by: JIMBO BOWERS Authorized by: JIMBO BOWERS Critical care provider statement: Critical care time (minutes):35 Critical care time was exclusive of:Separately billable procedures and treating other patients and teaching time Critical care was necessary to treat or prevent imminent or life-threatening deterioration of the following conditions:Respiratory failure Critical care was time spent personally by me on the following activities:Blood draw for specimens, development of treatment plan with patient or surrogate, discussions with consultants, discussions with primary provider, evaluation of patient's response to treatment, examination of patient, interpretation of cardiac output measurements, review of old charts, re-evaluation of patient's condition, pulse oximetry, ordering and review of radiographic studies, ordering and review of laboratory studies and ordering and performing treatments and interventions Freddie 'yes' if you are taking over critical care for this patient from another provider.: no after 01/08/2018 Insurance Payer Benefit Subscriber ID Type Phone Address Plan / Group [employer] [facility] xxxxxxxxxxx O Advance Directives Patient has advance care planning documents on file. For more information, mj salinas contact: Ike Nieves [address] [facility] [place] [address]
--- OUTSIDE RECORDS SUMMARY | 2019-01-09 10:20 | XMS REPORT | Continuity of Care Document ---
Author Author [facility] Interface Address Unknown Phone Unavailable Problems Problem Status Onset Date Classification Date Reported Comments Source DX: PULMONARY EMBOLISM Active 08/30/2018 [facility] Tendonitis of elbow or forearm Active Diagnosis 04/23/2014 [facility] Positive PPD Active Problem 07/14/2015 [facility] BMI 27.0-27.9,adult Active Diagnosis 01/27/2015 [facility] Routine general medical examination at a health care facility Active Diagnosis 01/27/2015 [facility] Hyperlipidemia Active Problem 07/14/2015 [facility] Nocturia Active Diagnosis 01/27/2015 [facility] Overweight Active Diagnosis 01/27/2015 [facility] Polyuria Active Diagnosis 01/27/2015 [facility] Tendonitis of elbow, right Active Diagnosis 04/23/2014 [facility] Allergic rhinitis Active Diagnosis 04/23/2014 [facility] Positive PPD Active Problem 06/03/2016 [facility] Hyperlipidemia, unspecified hyperlipidemia Active Problem 06/03/2016 [facility] Right elbow pain Active Problem 06/03/2016 [facility] Poison brandon Active Diagnosis 03/19/2016 [facility] Leg pain Active Diagnosis 07/14/2015 [facility] Strain of right quadriceps Active Diagnosis 07/14/2015 [facility] Routine general medical examination at a health care facility Active Diagnosis 03/30/2016 [facility] Sore throat Active Diagnosis 06/03/2016 [facility] Acute pharyngitis, unspecified Active Diagnosis 06/03/2016 [facility] Cholelithiasis Active Problem 01/07/2019 [facility] Blood pressure elevated without history of HTN Active Problem 01/07/2019 [facility] 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 [facility] Pulmonary nodule Active Problem 01/07/2019 [facility] Pulmonary embolism Active Problem 01/07/2019 [facility] Fatty liver Active Problem 01/07/2019 [facility] Medications Medication Details Route Status Patient Instructions Ordering Provider Order Date Source rivaroxaban 20 MG Oral Tablet [Xarelto] 20 mg=1 tab, PO, QPM, # 60 tab, 3 Refill(s), Pharmacy: [facility]/pharmacy #[id number] Active 06/01/2018 [facility] Acetaminophen 325 MG / Oxycodone Hydrochloride 10 MG Oral Tablet 2 tab, PO, Q6H, PRN for pain, 0 Refill(s) Active 06/01/2018 [facility] Acetaminophen 325 MG / Hydrocodone Bitartrate 5 MG Oral Tablet 1 tab, PO, Q4H, PRN for pain, # 42 tab, 0 Refill(s) No Longer Active 06/01/2018 [facility] Xarelto PO, 0 Refill(s) Inactive 06/01/2018 [facility] Augmentin 1 tablet Orally Active 875-125 MG Orally twice a day Nuria 06/01/2016 [facility] Fluticasone Propionate 1 application to affected area Externally Active 0.05 % Externally Once a day Nuria 03/17/2016 [facility] Medrol (Kiel) as directed Orally Active 4 mg Orally as directed on pack Buntyn 07/13/2015 [facility] Naproxen 1 tablet as needed Orally Active 500 mg Orally every 12 hrs Moira 03/20/2014 [facility] Flonase 2 spray in each nostril Nasally Active 50 MCG/ACT Nasally Once a day Dileep 03/20/2014 [facility] Whey Protein Unknown Orally Active Orally Nuria [facility] Allergies, Adverse Reactions, Alerts Substance Category Reaction Severity Reaction type Status Date Reported Comments Source N.K.D.A. Adverse Reaction Info Not Available Adverse Reaction Active 06/01/2016 [facility] Immunizations Immunization Date Given Site Status Last Updated Comments Source influenza virus vaccine, inactivated<sup>1</sup> 07/20/2018 Left Deltoid completed [facility] Result Comment: Patient waited 15 minutes, no reaction noted. [facility] Results Order Name Results Value Reference Range Date Interpretation Comments Source Chest CTA Chest CTA Clinical Indication: History of postoperative DVT and/or PE, follow-up; Comparison: None TECHNIQUE: Sequential trans-axial images were obtained thru the chest and upper abdomen [<after>] administration of iodinated contrast. Coronal and sagittal reconstructions were obtained. 100 mL of Omnipaque 350 contrast material was used for the exam. Postprocessing 3-D/MIP reformations were created and interpreted. CT imaging performed at this location utilizes radiation dose optimization techniques which include one or more of the following: -Automated exposure control -Adjustment of the mA and/or kV according to patient size -Use of iterative reconstruction technique CT Radiation Dose DLP 398 mGy-cm FINDINGS: LUNG PARENCHYMA AND PLEURA: A 6 mm right upper lobe nodule (series 5 image 49). A few other tiny subpleural nodular opacities (for instance series 5 image 58 in the anterior right upper lobe). Subsegmental atelectasis in the lower lobes.. There is no interstitial lung disease. There are no pleural effusions.There is no pneumothorax. Hypoinflation. AIRWAY: The central airway is normal. MEDIASTINUM: There is no mediastinal lymphadenopathy. HEART: The cardiac chambers appear unremarkable. There is no pericardial effusion. Cardiomegaly. No evidence of right heart strain. VASCULAR STRUCTURES: Main pulmonary diameter is normal limits. No filling defects to the segmental level bilaterally. Valuation of the aorta and venous structures is limited by timing of contrast bolus however they are grossly unremarkable.. The thoracic aorta is unremarkable. The superior vena cava is unremarkable. OSSEOUS STRUCTURES: There are no definite significant osseous abnormalities seen. VISUALIZED UPPER ABDOMEN: The visualized upper abdomen is unremarkable. Cholelithiasis. Hepatic steatosis. IMPRESSION: 1. No acute thoracic abnormality. No PE. 2. Cardiomegaly without pulmonary edema. 3. Pulmonary hypoinflation. A 6 mm right upper lobe nodule. See recommendations below regarding follow-up. 3. Cholelithiasis. 4. Hepatic steatosis. 2017 - Guidelines for Management of Incidental Pulmonary Nodules Detected on CT: From the Fleischner Society. Radiol 2017: 0; 1-16 SOLID NODULES: Single Nodule Size* Low Risk\S\ High Risk <6mm No follow up needed Optional at 12 mos. 6-8mm CT at 6-[address] at 6-[address] then [address] at [address] at 18 to 24 >[address], PET/CT or mos. Consider CT, tissue sampling at 3 mos. PET/CT or tissue sampling at 3 mos. Nodules <6 mm do not require routine follow-up, but certain patients at high risk with suspicious nodule morphology, upper lobe location or both may warrant 12 month follow-up. SL: [id number] 09/05/2018 - - Read by: Jaiden Comer MD Dictated Date/time: 09/05/18 11:15 Electronically Signed by: Jaiden Comer MD 09/05/18 11:24 FINAL REPORT [facility] Vital Signs Vital Sign Value Date Comments Source Weight 92.273 06/20/2018 [facility] BMI Calculated 30.93 06/20/2018 [facility] Systolic (mm Hg) 134 06/20/2018 [facility] Diastolic (mm Hg) 89 06/20/2018 [facility] Heart Rate 73 06/20/2018 [facility] Height 172.72 cm 06/20/2018 [facility] Respitory Rate 14 06/20/2018 [facility] Temperature Oral (F) 98.2 F 06/20/2018 [facility] BMI Calculated 26.21 06/01/2018 [facility] Temperature Oral (F) 98.0 F 06/01/2018 [facility] Heart Rate 69 06/01/2018 [facility] Respitory Rate 14 06/01/2018 [facility] Weight 78.182 06/01/2018 [facility] Height 172.72 cm 06/01/2018 [facility] Systolic (mm Hg) 128 06/01/2018 [facility] Diastolic (mm Hg) 84 06/01/2018 [facility] Respitory Rate 14 04/23/2018 [facility] Height 172.72 cm 04/23/2018 [facility] Systolic (mm Hg) 148 04/23/2018 [facility] Diastolic (mm Hg) 87 04/23/2018 [facility] Weight 95.909 04/23/2018 [facility] BMI Calculated 32.15 04/23/2018 [facility] Temperature Oral (F) 98.0 F 04/23/2018 [facility] Heart Rate 60 04/23/2018 [facility] Weight 185 06/01/2016 [facility] Height 67 06/01/2016 [facility] Temperature Oral (F) 98.4 F 06/01/2016 [facility] Heart Rate 52 06/01/2016 [facility] Diastolic (mm Hg) 70 06/01/2016 [facility] Systolic (mm Hg) 124 06/01/2016 [facility] Weight 182 03/28/2016 [facility] Height 67 03/28/2016 [facility] Heart Rate 52 03/28/2016 [facility] Diastolic (mm Hg) 70 03/28/2016 [facility] Systolic (mm Hg) 114 03/28/2016 [facility] Weight 179 03/17/2016 [facility] Height 67 03/17/2016 [facility] Heart Rate 55 03/17/2016 [facility] Diastolic (mm Hg) 68 03/17/2016 [facility] Systolic (mm Hg) 116 03/17/2016 [facility] Weight 174 07/13/2015 [facility] Height 67 07/13/2015 [facility] Heart Rate 68 07/13/2015 [facility] Diastolic (mm Hg) 70 07/13/2015 [facility] Systolic (mm Hg) 110 07/13/2015 [facility] Weight 177 01/26/2015 [facility] Height 67 01/26/2015 [facility] Heart Rate 65 01/26/2015 [facility] Diastolic (mm Hg) 60 01/26/2015 [facility] Systolic (mm Hg) 110 01/26/2015 [facility] Weight 178 04/15/2014 [facility] Height 67 04/15/2014 [facility] Heart Rate 60 04/15/2014 [facility] Diastolic (mm Hg) 90 04/15/2014 [facility] Systolic (mm Hg) 144 04/15/2014 [facility] Weight 177 03/20/2014 [facility] Height 67 03/20/2014 [facility] Temperature Oral (F) 98.8 F 03/20/2014 [facility] Heart Rate 54 03/20/2014 [facility] Diastolic (mm Hg) 86 03/20/2014 [facility] Systolic (mm Hg) 126 03/20/2014 [facility] Encounters Location Location Details Encounter Type Encounter Number Reason For Visit Attending Provider ADM Date DC Date Status Source [facility] [employer] [id number] 03/20/2014 03/20/2014 [facility] [employer] [id number] 03/20/2014 03/20/2014 [facility] [employer] [id number] 03/20/2014 03/20/2014 [facility] [employer] [id number] 03/20/2014 03/20/2014 [facility] [employer] [id number] 03/20/2014 03/20/2014 [facility] [employer] [id number] 03/20/2014 03/20/2014 [facility] [employer] [id number] 03/20/2014 03/20/2014 [facility] Left elbow Pain [id number] 04/15/2014 04/15/2014 [facility] Left elbow Pain [id number] 04/15/2014 04/15/2014 [facility] Left elbow Pain [id number] 04/15/2014 04/15/2014 [facility] Left elbow Pain [id number] 04/15/2014 04/15/2014 [facility] Left elbow Pain [id number] 04/15/2014 04/15/2014 [facility] Left elbow Pain [id number] 04/15/2014 04/15/2014 [facility] physical exam [id number] 01/26/2015 01/26/2015 [facility] physical exam [id number] 01/26/2015 01/26/2015 [facility] physical exam [id number] 01/26/2015 01/26/2015 [facility] physical exam [id number] 01/26/2015 01/26/2015 [facility] physical exam [id number] 01/26/2015 01/26/2015 [facility] MELIA-FBTimothy [id number] 02/04/2015 02/04/2015 [facility] MELIA-FBTimothy [id number] 02/04/2015 02/04/2015 [facility] [id number]-FBW [id number] 02/04/2015 02/04/2015 [facility] [id number] 02/04/2015 02/04/2015 [facility] legs pain [id number] 07/13/2015 07/13/2015 [facility] legs pain [id number] 07/13/2015 07/13/2015 [facility] legs pain [id number] 07/13/2015 07/13/2015 [facility] legs pain [id number] 07/13/2015 07/13/2015 [facility] RIGHT ELBOW PAIN /BS [id number] 08/31/2015 08/31/2015 [facility] RIGHT ELBOW PAIN /BS [id number] 08/31/2015 08/31/2015 [facility] RIGHT ELBOW PAIN /BS [id number] 08/31/2015 08/31/2015 [facility] Poison brandon [id number] 03/17/2016 03/17/2016 [facility] Poison brandon [id number] 03/17/2016 03/17/2016 [facility] Poison brandon [id number] 03/17/2016 03/17/2016 [facility] physical [id number] 03/28/2016 03/28/2016 [facility] physical [id number] 03/28/2016 03/28/2016 [facility] sore throat. [id number] 06/01/2016 06/01/2016 [facility] Outpatient [id number] KELSEY KOENIGH 07/31/2017 Active [facility] Outpatient [id number] KELSEY [facility] 08/28/2017 Active [facility] Outpatient [id number] KELSEY [facility] 04/23/2018 Active [facility] Outpatient [id number] Kelsey Tino 04/23/2018 04/24/2018 [facility] Outpatient [id number] [facility] 06/01/2018 Active [facility] Primary Care [facility] Outpatient [id number] [facility] 06/01/2018 06/02/2018 [facility] Outpatient [id number] KELSEY [facility] 06/20/2018 Active [facility] Primary Care [facility] Outpatient [id number] Kelsey [facility] 06/20/2018 06/21/2018 [facility] Outpatient [id number] KELSEY [facility] 07/20/2018 Active [facility] Outpatient [id number] KELSEY [facility] 09/06/2018 Active [facility] Primary [facility] Phone Message [id number] 01/02/2019 01/04/2019 [facility] Procedures Procedure Code Date Perfomer Comments Source Operative procedure on foot [id number] 05/18/2018 [facility] Appendectomy [id number] Medical [facility] Repair of umbilical hernia [id number] [facility]
--- OUTSIDE RECORDS SUMMARY | 2019-01-09 10:20 | XMS REPORT | Summary of Care ---
Author Author [facility] Organization [facility] Address Unknown Phone Unavailable Encounter HQ Encntr_alias(FIN) [id number] Date(s): 01/02/19 - 01/03/19 [facility] [address], [address] [place] [address]- [phone] Vital Signs No data available for this section Problem List Condition Effective Dates Status Health Status Informant Cholelithiasis(Confi Active rmed) Blood pressure Active elevated without history of HTN(Confirmed) Arthritis of Active foot(Confirmed) Pulmonary Active nodule(Confirmed) Pulmonary Active embolism(Confirmed) Fatty Active liver(Confirmed) Allergies, Adverse Reactions, Alerts Substance Reaction Severity Status NKDA Active Medications No data available for this section Results No data available for this section Immunizations Given and Recorded Vaccine Date Status Refusal Reason influenza virus vaccine, inactivated1 07/20/18 Given 1Result Comment: Patient waited 15 minutes, no reaction noted. Procedures Procedure Date Related Diagnosis Body Site Status Operative procedure on foot 05/18/18 Completed Appendectomy Completed Repair of umbilical hernia Completed Social History Social History Type Response Exercise Exercise duration: 120. Exercise frequency: 5-6 times/week. Exercise type: Walking, Running, cycling. Employment/School Status: Employed. 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 Alcohol Never Smoking Status Never smoker; Exposure to Tobacco Smoke None; Cigarette Smoking Last 365 Days No; Reg Smoking Cessation Counseling No entered on: 09/06/18 Assessment and Plan No data available for this section
--- OUTSIDE RECORDS SUMMARY | 2019-01-09 10:20 | XMS REPORT | Summary of Care ---
Author Author [facility] Organization [facility] Address Unknown Phone Unavailable Encounter HQ Vincenzor_gilmra(FIN) [id number] Date(s): 06/20/18 - 06/20/18 [facility] [address], [address] [place] [address]- [phone] Discharge Disposition: Home or Self Care Attending Physician: Shira Logan DO Vital Signs Most recent to 1 oldest [Reference Range]: Height 172.72 cm (06/20/18 10:21 AM) Temperature Oral 98.2 DegF [96.4-99.1 DegF] (06/20/18 10:21 AM) Blood Pressure 134/89 mmHg [90-140/60-90 mmHg] (06/20/18 10:21 AM) Respiratory Rate 14 BRMIN [14-20 BRMIN] (06/20/18 10:21 AM) Peripheral Pulse 73 bpm Rate [60-100 bpm] (06/20/18 10:21 AM) Weight 92.273 kg (06/20/18 10:21 AM) Body Mass Index 30.93 m2 (06/20/18 10:21 AM) Problem List Condition Effective Dates Status Health Status Informant Cholelithiasis(Confi Active rmed) Blood pressure Active elevated without history of HTN(Confirmed) Arthritis of Active foot(Confirmed) Pulmonary Active nodule(Confirmed) Pulmonary Active embolism(Confirmed) Fatty Active liver(Confirmed) Allergies, Adverse Reactions, Alerts Substance Reaction Severity Status NKDA Active Medications No Known Medications Results No data available for this section [...] Running, cycling. Employment/School Status: Employed. 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 Alcohol Never Smoking Status Never smoker; Exposure to Tobacco Smoke None; Cigarette Smoking Last 365 Days No; Reg Smoking Cessation Counseling No entered on: 09/06/18 Assessment and Plan No data available for this section
--- OUTSIDE RECORDS SUMMARY | 2019-01-09 10:20 | XMS REPORT | Summary of Care ---
Author Author [facility] Organization [facility] Address Unknown Phone Unavailable Encounter HQ Elinor(FIN) [id number] Date(s): 06/01/18 - 06/01/18 [facility] [address], [address] [place] [address]- [phone] Discharge Disposition: Home or Self Care Attending Physician: Shira Logan DO Vital Signs Most recent to 1 oldest [Reference Range]: Height 172.72 cm (06/01/18 10:18 AM) Temperature Oral 98.0 DegF [96.4-99.1 DegF] (06/01/18 10:18 AM) Blood Pressure 128/84 mmHg [90-140/60-90 mmHg] (06/01/18 10:18 AM) Respiratory Rate 14 BRMIN [14-20 BRMIN] (06/01/18 10:18 AM) Peripheral Pulse 69 bpm Rate [60-100 bpm] (06/01/18 10:18 AM) Weight 78.182 kg (06/01/18 10:18 AM) Body Mass Index 26.21 m2 (06/01/18 10:18 AM) Problem List Condition Effective Dates Status Health Status Informant Cholelithiasis(Confi Active rmed) Blood pressure Active elevated without history of HTN(Confirmed) Arthritis of Active foot(Confirmed) Pulmonary Active nodule(Confirmed) Pulmonary Active embolism(Confirmed) Fatty Active liver(Confirmed) Allergies, Adverse Reactions, Alerts Substance Reaction Severity Status NKDA Active Medications acetaminophen-hydrocodone 325 mg-5 mg oral tablet 1 tab, PO, Q4H, PRN for pain, # 42 tab, 0 Refill(s) Start Date: 06/01/18 Stop Date: 06/20/18 Status: Discontinued acetaminophen-oxycodone 325 mg-10 mg oral tablet 2 tab, PO, Q6H, PRN for pain, 0 Refill(s) Start Date: 06/01/18 Stop Date: 06/08/18 Status: Ordered Xarelto PO, 0 Refill(s) Start Date: 06/01/18 Stop Date: 06/01/18 Status: Discontinued Xarelto 20 mg oral tablet 20 mg=1 tab, PO, QPM, # 60 tab, 3 Refill(s), Pharmacy: [facility]/pharmacy #[id number] Start Date: 06/01/18 Stop Date: 01/27/19 Status: Ordered Results No data available for this section [...] Running, cycling. Employment/School Status: Employed. 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 Alcohol Never Smoking Status Never smoker; Exposure to Tobacco Smoke None; Cigarette Smoking Last 365 Days No; Reg Smoking Cessation Counseling No entered on: 09/06/18 Assessment and Plan No data available for this section
--- OUTSIDE RECORDS SUMMARY | 2019-01-09 10:22 | XMS REPORT | Clinical Summary ---
Author Author [facility] Organization [facility] Address Unknown Phone Unavailable Care Team Providers Care Java Programmer Name Role Phone Shira Logan DO PCP [...] without acute cor pulmonale (Primary Dx) 05/23/2018 [facility] General Internal Medicine - Encounter 05/27/2018 [...] MMODE SPECTRAL 11:55 AM CDT COLOR DOPPLER ([id number]) TROPONIN STAT 05/24/2018 8:45 AM CDT B [...] PRELIMINARY Routine 05/23/2018 INTERPRETATION 11:43 PM CDT NM CRITICAL CARE, E/M Routine 05/23/2018 30-74 MINUTES 11:43 PM CDT after 01/08/2018 Results * Echocardiogram 2d limited (05/26/2018 1:23 PM CDT) [facility]ative [facility] [address] [facility], [facility] [address], [place] [address] Pat.Name:PHUONG HARDIN.ID:[id number] .Date: 05/26/2018 Refer.MD:SARAHI DUTTA MD Exam Time: 11:04:00 AM Study Type:Routine Echo Height:68inWeight:208lb BSA: 2.08 m2 DOBAge:1965,52Y Sex: MALEBP:128/85 HR:74 bpmSonogrphr: ASHVIN Gregory. Stat.:Inpatient Room:[facility] Study Status:Final Echo Event ID:[id number] Order ID:[id number] Reason for Study:RIGHT HEART STRAIN Procedures:Portable, Stat, [...] PA systolic pressure. MEASUREMENTS: 2D Parasternal Long [place] LVOT 2 cmLA Ds3.2 cm LVIDd4.8 cmIndex2.3 cm/m Ao An2 cm LVIDs2.7 cmAo Rtd 3.5 cm Index1.7 cm/m LV%fs 43.5 % LV Cjue899.8 g(122-174) IVSd 1.2 cmLVM Wsllu621.2 g/m2 LVPWd1.2 cmRWT0.5 LA Sng Plane LA Area 17.9 cm2(8.8-23.4) LA Vol53.1 ml Index25.5 ml/m LA LngAx 4.8 cm RA Sng Plane RA Area 20.9 cm2(8.3-19.5) RA Vol66 ml Index31.7 ml/m RA LngAx 5.4 cm Signed 05/26/2018 03:14 PM Richy Reno M.D. Procedure Note Interface, Radiology Results In - 05/26/2018 3:14 PM CDT Echocardiography Report [address]Name: PHUONG HARDIN Pat.ID: [id number] .Date: 05/26/2018 Refer.MD: SRAAHI DUTTA MD Exam Time: 11:04:00 AM Study Type:Routine Echo Height: 68in Weight: 208lb BSA: 2.08 m2 Age: 13 1965,52Y Sex: MALE BP: 128/85 HR: 74 bpm Sonogrphr: ASHVIN Gregory Pat. Stat.:Inpatient Room: [facility] Study Status:Final Echo Event ID:[id number] Order ID: [id number] Reason for Study:RIGHT HEART STRAIN Procedures:Portable, Stat, [...] PA systolic pressure. MEASUREMENTS: 2D Parasternal Long [place] LVOT 2 cm LA Ds 3.2 cm [...] M.D. Performing Organization Address City/State/Zipcode Phone Number [facility] [address] [place] [address] * Anti Xa, unfractionated (05/25/2018 4:30 AM CDT) Only the most recent of 3 results within the time period is included. Anti Xa, unfractionated 0.41Comment: Therapeutic 0.30 - 0.70 U/mL [facility] DEPARTMENT OF Range: 0.30 - 0.70 U/mL PATHOLOGY AND GENOMIC MEDICINE Specimen Blood Performing Organization Address City/State/Zipcode Phone Number [facility] DEPARTMENT OF [address] [place] [address] PATHOLOGY AND GENOMIC MEDICINE * CBC with platelet and differential (05/25/2018 4:30 AM CDT) Only the most recent of 2 results within the time period is included. WBC 8.57 4.50 - 11.00 k/uL [facility] DEPARTMENT OF PATHOLOGY AND GENOMIC MEDICINE RBC 4.71 4.40 - 6.00 m/uL [facility] DEPARTMENT OF PATHOLOGY AND GENOMIC MEDICINE HGB 13.6 (L) 14.0 - 18.0 g/dL [facility] DEPARTMENT OF PATHOLOGY AND GENOMIC MEDICINE HCT 39.4 (L) 41.0 - 51.0 % [facility] DEPARTMENT OF PATHOLOGY AND GENOMIC MEDICINE MCV 83.7 82.0 - 100.0 fL [facility] DEPARTMENT OF PATHOLOGY AND GENOMIC MEDICINE MCH 28.9 27.0 - 34.0 pg [facility] DEPARTMENT OF PATHOLOGY AND GENOMIC MEDICINE MCHC 34.5 31.0 - 37.0 g/dL [facility] DEPARTMENT OF PATHOLOGY AND GENOMIC MEDICINE RDW - SD 40.9 37.0 - 55.0 fL [facility] DEPARTMENT OF PATHOLOGY AND GENOMIC MEDICINE MPV 10.2 8.8 - 13.2 fL [facility] DEPARTMENT OF PATHOLOGY AND GENOMIC MEDICINE Platelet count 284 150 - 400 k/uL [facility] DEPARTMENT OF PATHOLOGY AND GENOMIC MEDICINE Nucleated RBC 0.00 /100 WBC [facility] DEPARTMENT OF PATHOLOGY AND GENOMIC MEDICINE Neutrophils 64.4 39.0 - 69.0 % [facility] DEPARTMENT OF PATHOLOGY AND GENOMIC MEDICINE Lymphocytes 20.3 (L) 25.0 - 45.0 % [facility] DEPARTMENT OF PATHOLOGY AND GENOMIC MEDICINE Monocytes 8.8 0.0 - 10.0 % [facility] DEPARTMENT OF PATHOLOGY AND GENOMIC MEDICINE Eosinophils 3.3 0.0 - 5.0 % [facility] DEPARTMENT OF PATHOLOGY AND GENOMIC MEDICINE Basophils 0.7 0.0 - 1.0 % [facility] DEPARTMENT OF PATHOLOGY AND GENOMIC MEDICINE Immature granulocytes 2.5 (H)Comment: "Immature 0.0 - 1.0 % [facility] DEPARTMENT OF granulocytes" (promyelocytes, PATHOLOGY AND myelocytes, metamyelocytes) GENOMIC MEDICINE Specimen Blood Performing Organization Address City/State/Zipcode Phone Number [facility] DEPARTMENT OF [address] [place] [address] PATHOLOGY AND GENOMIC MEDICINE * Pv duplex venous lower extremity (05/24/2018 5:30 PM CDT) Narrative Performed At [facility] Vascular Ultrasound Laboratory Lower Extremity Venous Report [address] [facility] [address], [place] [address] Pat.Name:PHUONG HARDIN Pat.ID:[id number] St.Date: 05/24/2018 Refer.MD:SARAHI DUTTA MD Exam Time: 5:01:00 PMStudy Type:LE Venous DOBAge:1965,52Y Sex: MALE Sonogrphr: RADHA Duarte RCS Pat. Stat.:Inpatient Room:[address] TapeVol: GAUTAM, CPT - 4: 41416 Echo Event ID:[id number] Order ID:[id number] Reason for Study:Evaluate for DVT. Pulmonary embolism [...] Preliminary results called to MAHENDRA Orr @ 2488 on 05/24/18. PHYSICIAN INTERPRETATION Venous examination of the both lower extremities demonstrated acute deep vein thrombosis of one of the paired right posterior tibial and right peroneal vein. Signed 05/25/2018 03:37 AM Domingo Pemberton MD, RPVI Procedure Note Interface, Radiology Results In - 05/25/2018 3:37 AM CDT Vascular Ultrasound Laboratory Lower Extremity Venous Report [address] [place] [address] Pat.Name: PHUONG HARDIN Pat.ID: [id number] .Date: 05/24/2018 Refer.MD: SARAHI DUTTA MD Exam Time: 5:01:00 PM Study Type:LE Venous Age: 13 1965,52Y Sex: MALE Sonogrphr: RADHA Duarte RCS Pat. Stat.:Inpatient Room: [address] Tape Vol: , CPT - 4: 92339 Echo Event ID:[id number] Order ID: [id number] Reason for Study:Evaluate for DVT. Pulmonary embolism [...] Preliminary results called to MAHENDRA Orr @ 6107 on 05/24/18. PHYSICIAN INTERPRETATION Venous examination of the both lower extremities demonstrated acute deep vein thrombosis of one of the paired right posterior tibial and right peroneal vein. Signed 05/25/2018 03:37 AM Domingo Pemberton MD, RPVI Performing Organization Address City/State/Zipcode Phone Number [facility] [address] [place] [address] * Echocardiogram complete w contrast and 3D if needed (05/24/2018 11:55 AM CDT) Narrative Performed At [facility] Echocardiography Report [address]Name:PHUONG HARDIN Pat.ID:[id number] .Date: 05/24/2018 Refer.MD:SARAHI DUTTA MD Exam Time: 10:40:00 AM Study Type:Routine Echo Height:68inWeight:208lb BSA: 2.08 m2 DOBAge:1965,52Y Sex: MALEBP:135/91 HR:88 bpmSonogrphr: ASHVIN Hylton Pat. Stat.:Inpatient Room:[address] Study Status:Final Echo Event ID:[id number] Order ID:[id number] Reason for Study:Right Heart Strain Procedures:2D Echo, [...] use of contrast. MEASUREMENTS: 2D Parasternal Long [place] Ao An2.3 cmLVPWd1 cm LVOT 2.2 cmLA Ds2.9 cm LVIDd4.5 cmIndex2.2 cm/m Ao Rtd 3.4 cm Index1.7 cm/m LVIDs2.9 cm LV Bcqo677.5 g(122-174) LV%fs 35.3 % LVM Index 84.8 g/m2 IVSd 1.2 cmRWT0.4 LA Sng Plane LA Area 19.2 cm2(8.8-23.4) LA Vol50.1 ml Index24.1 ml/m LA LngAx 6 cm RA Sng Plane RA Area 21.9 cm2(8.3-19.5) RA Vol60.5 ml Index29.1 ml/m RA LngAx 6.4 cm DOPPLER LVOT Stroke Vol LVOT 2.1 cmLVOT CO5.2 l/min LVOT TVI18.7 cmLVOT CI2.5 l/m/m2 LVOT Tm228 iasuGT68 bpm LVOT SV 64.8 ml RV S RV S Vel11.5 cm/s RV TAPSE TVI RV t TVI 1.9 cmRV t Flw Int 263 msec Signed 05/24/2018 05:58 PM Ritu Mustafa M.D. Procedure Note Interface, Radiology Results In - 05/24/2018 5:58 PM CDT Echocardiography Report [address] [place] [address] Pat.Name: PHUONG HARDIN Pat.ID: [id number] St.Date: 05/24/2018 Refer.MD: SARAHI DUTTA MD Exam Time: 10:40:00 AM Study Type:Routine Echo Height: 68in Weight: 208lb BSA: 2.08 m2 Age: 11 1965,52Y Sex: MALE BP: 135/91 HR: 88 bpm Sonogrphr: ASHVIN Hylton Pat. Stat.:Inpatient Room: [address] Study Status:Final Echo Event ID:[id number] Order ID: [id number] Reason for Study:Right Heart Strain Procedures:2D Echo, [...] use of contrast. MEASUREMENTS: 2D Parasternal Long [place] Ao An 2.3 cm LVPWd 1 cm [...] Performing Organization Address City/State/Zipcode Phone Number [facility] [address] [place] [address] * Troponin (05/24/2018 8:45 AM CDT) Troponin <0.30 0.00 - 0.30 ng/mL [facility] DEPARTMENT OF Comment: PATHOLOGY AND 0.30 - 1.49 GENOMIC MEDICINE ng/mlMay indicate increased risk of acute coronary syndrome. >=1.5 ng/ml Consistent with acute myocardial infarction. The diagnostic value of a single normal or non-diagnostic result is questionable.Serial samples at 2-6 hour intervals are required to rule out acute myocardial injury. Specimen Plasma specimen Performing Organization Address City/State/Zipcode Phone Number [facility] DEPARTMENT OF [address] [place] [address] PATHOLOGY AND GENOMIC MEDICINE * B natriuretic peptide (05/24/2018 8:37 AM CDT) BNP 7 0 - 100 pg/mL [facility] DEPARTMENT OF PATHOLOGY AND GENOMIC MEDICINE Specimen Blood Performing Organization Address [facility] Mex[facility] Phone Number [facility] DEPARTMENT [address] [address] PATHOLOGY AND [facility] * CT Angiogram Pe Chest (05/24/2018 [...] 05/24/2018 2:46 AM, with acknowledgement of understanding. [facility]-[id number] Procedure Note [facility], Radiology Results Incoming - 05/24/2018 2:54 AM [...] 05/24/2018 2:46 AM, with acknowledgement of understanding. [facility]-[id number] Performing Organization Address City/[facility]/Zipcode Phone Number [facility] [address] [place] [address] * ECG 12 lead (05/24/2018 2:05 AM CDT) Ventricular rate 88 [facility] MUSE Atrial rate 88 [facility] MUSE NM interval 182 [facility] M[facility] QRSD interval 138 [facility] QT interval 380 [facility] QTC interval 459 [facility] P axis 1 38 [facility] QRS axis 1 42 [facility] MUSE T wave axis 16 [facility] MUSE EKG impression Normal sinus rhythm-Right [facility] MUSE bundle branch block-Abnormal ECG-No previous ECGs available- Performing Organization Address [facility] Mex[facility] Phone Number [facility] MUSE [address] [place] [address] * Urinalysis screen and microscopy, with reflex to culture (05/24/2018 12:20 AM CDT) Specimen site Clean catch [facility] DEPARTMENT OF PATHOLOGY AND GENOMIC MEDICINE Color, UA Colorless [facility] DEPARTMENT OF PATHOLOGY AND GENOMIC MEDICINE Appearance, UA Clear [facility] DEPARTMENT OF PATHOLOGY AND GENOMIC MEDICINE Specific gravity, UA 1.006 1.001 - 1.035 [facility] DEPARTMENT OF PATHOLOGY AND GENOMIC MEDICINE pH, UA 7.0 5.0 - 8.5 [facility] DEPARTMENT OF PATHOLOGY AND GENOMIC MEDICINE Protein, UA Negative Negative [facility] DEPARTMENT OF PATHOLOGY AND GENOMIC MEDICINE Glucose, UA Negative Negative [facility] DEPARTMENT OF PATHOLOGY AND GENOMIC MEDICINE Ketones, UA Negative Negative [facility] DEPARTMENT OF PATHOLOGY AND GENOMIC MEDICINE Bilirubin, UA Negative Negative [facility] DEPARTMENT OF PATHOLOGY AND GENOMIC MEDICINE Blood, UA Negative Negative [facility] DEPARTMENT OF PATHOLOGY AND GENOMIC MEDICINE Nitrite, UA Negative Negative [facility] DEPARTMENT OF PATHOLOGY AND GENOMIC MEDICINE Urobilinogen, UA <2.0 <2.0 [facility] DEPARTMENT OF PATHOLOGY AND GENOMIC MEDICINE Leukocyte esterase, UA Negative Negative [facility] DEPARTMENT OF PATHOLOGY AND GENOMIC MEDICINE WBC, UA None seen 0 - 1 /HPF [facility] DEPARTMENT OF PATHOLOGY AND GENOMIC MEDICINE RBC, UA <1 0 - 5 /HPF [facility] DEPARTMENT OF PATHOLOGY AND GENOMIC MEDICINE Bacteria, UA None seen None seen [facility] DEPARTMENT OF PATHOLOGY AND GENOMIC MEDICINE Yeast, UA None seen [facility] DEPARTMENT OF PATHOLOGY AND GENOMIC MEDICINE Yeast with pseudohyphae, None seen [facility] DEPARTMENT OF UA PATHOLOGY AND GENOMIC MEDICINE Specimen Urine Performing Organization Address [facility] Mex[facility]ode Phone Number [facility] [place] [address] PATHOLOGY AND GENOMIC MEDICINE * Estimated GFR (05/24/2018 12:20 AM CDT) GFR Non Af Amer 89 mL/min/1.73 m2 [facility] DEPARTMENT OF PATHOLOGY AND GENOMIC MEDICINE GFR Af Amer >90 mL/min/1.73 m2 [facility] DEPARTMENT OF Comment: PATHOLOGY AND Chronic [...] Americans. Specimen Plasma specimen Performing Organization Address [facility] Mex[facility]ode Phone Number [facility] [place] [address] PATHOLOGY AND [facility] * Blood culture, aerobic & anaerobic (05/24/2018 12:20 AM CDT) Blood culture isolate No growth after 5 days of [facility] DEPARTMENT OF incubation. PATHOLOGY AND Comment: GENOMIC MEDICINE Specimen Information Specimen Source: Blood Specimen Site: Antecubital, right Specimen Blood - Antecubital, right Performing Organization Address [facility] Mex[facility]ode Phone Number [facility] [place] [address] PATHOLOGY AND GENOMIC MEDICINE * Partial thromboplastin time, activated (05/24/2018 12:20 AM CDT) PTT 34.0 23.0 - 36.0 sec [facility] DEPARTMENT OF Comment: PATHOLOGY AND PTT therapeutic range for GENOMIC MEDICINE unfractionated heparin is 61.0-112.0 seconds which corresponds to Anti-Xa 0.3-0.7 U/ml. Specimen Blood Performing Organization Address City/[facility]/Zipcode Phone Number [facility] [place] [address] PATHOLOGY AND GENOMIC MEDICINE * Prothrombin time with INR (05/24/2018 12:20 AM CDT) Prothrombin time 13.3 12.0 - 15.0 sec [facility] DEPARTMENT OF PATHOLOGY AND GENOMIC MEDICINE INR 1.0 [facility] DEPARTMENT OF Comment: PATHOLOGY AND The International Normalized GENOMIC MEDICINE Ratio (INR) is a therapeutic monitoring tool for patients who are stable on oral anticoagulant therapy. An INR of 2.0-3.0 is suggested for deep vein thrombosis/pulmonary embolism. Specimen Blood Performing Organization Address City/[facility]/[place] [address] PATHOLOGY AND GENOMIC MEDICINE * Type and screen (05/24/2018 12:20 AM CDT) ABO grouping A [facility] DEPARTMENT OF PATHOLOGY AND GENOMIC MEDICINE Rh type POS [facility] DEPARTMENT OF PATHOLOGY AND GENOMIC MEDICINE Antibody screen (gel) NEG [facility] DEPARTMENT OF PATHOLOGY AND GENOMIC MEDICINE Specimen Blood Performing Organization Address City/[facility] [place] [address] PATHOLOGY AND GENOMIC MEDICINE * Urine culture (05/24/2018 12:20 AM CDT) Urine culture SEE COMMENTComment: [facility] DEPARTMENT OF Bacteriuria screen negative. PATHOLOGY AND GENOMIC MEDICINE Performing Organization Address City/[facility] Mex[facility]ode Phone Number [facility] [place] [address] PATHOLOGY AND GENOMIC MEDICINE * Phosphorus level (05/24/2018 12:20 AM CDT) Phosphorus 3.0 2.4 - 4.5 mg/dL [facility] DEPARTMENT OF PATHOLOGY AND GENOMIC MEDICINE Specimen Plasma specimen Performing Organization Address City/[facility] [place] [address] PATHOLOGY AND GENOMIC MEDICINE * Magnesium level (05/24/2018 12:20 AM CDT) Magnesium 2.1 1.6 - 2.6 mg/dL [facility] DEPARTMENT OF PATHOLOGY AND GENOMIC MEDICINE Specimen Plasma specimen Performing Organization Address City/[facility] [place] [address] PATHOLOGY AND GENOMIC MEDICINE * Venous blood gas (05/24/2018 12:20 AM CDT) pH, venous 7.40 7.32 - 7.42 [facility] DEPARTMENT OF PATHOLOGY AND GENOMIC MEDICINE pCO2, venous 43 (L) 45 - 51 mmHg [facility] DEPARTMENT OF PATHOLOGY AND GENOMIC MEDICINE pO2, venous 44 (H) 25 - 40 mmHg [facility] DEPARTMENT OF PATHOLOGY AND GENOMIC MEDICINE Base excess, venous 2 -2 - 2 meq/L [facility] DEPARTMENT OF PATHOLOGY AND GENOMIC MEDICINE O2 saturation, venous 77 (H) 40 - 70 % [facility] DEPARTMENT OF PATHOLOGY AND GENOMIC MEDICINE Bicarbonate, venous 26.5 21.0 - 28.0 mmol/L [facility] DEPARTMENT OF PATHOLOGY AND GENOMIC MEDICINE Specimen Blood Performing Organization Address City/[facility] [place] [address] PATHOLOGY AND GENOMIC MEDICINE * Basic metabolic panel (05/24/2018 12:20 AM CDT) Sodium 138 135 - 148 mEq/L [facility] DEPARTMENT OF PATHOLOGY AND GENOMIC MEDICINE Potassium 4.0 3.5 - 5.0 mEq/L [facility] DEPARTMENT OF PATHOLOGY AND GENOMIC MEDICINE Chloride 99 98 - 112 mEq/L [facility] DEPARTMENT OF PATHOLOGY AND GENOMIC MEDICINE CO2 27 24 - 31 mEq/L [facility] DEPARTMENT OF PATHOLOGY AND GENOMIC MEDICINE Anion gap 12@ANIO 7 - 15 mEq/L [facility] DEPARTMENT OF PATHOLOGY AND GENOMIC MEDICINE BUN 13 6 - 20 mg/dL [facility] DEPARTMENT OF PATHOLOGY AND GENOMIC MEDICINE Creatinine 0.9 0.7 - 1.2 mg/dL [facility] DEPARTMENT OF PATHOLOGY AND GENOMIC MEDICINE Glucose 122 (H) 65 - 99 mg/dL [facility] DEPARTMENT OF PATHOLOGY AND GENOMIC MEDICINE Calcium 9.3 8.3 - 10.2 mg/dL [facility] DEPARTMENT OF PATHOLOGY AND GENOMIC MEDICINE Specimen Plasma specimen Performing Organization Address [facility] [place] [address] PATHOLOGY AND GENOMIC MEDICINE * XR Chest 1 Vw Portable (05/24/2018 12:05 AM CDT) Narrative Performed At EXAMINATION: XR CHEST 1 VW PORTABLE [facility] CLINICAL HISTORY: Chest Pain COMPARISON:None. IMPRESSION: The lungs are clear. No pleural effusion or pneumothorax. Cardiac silhouette appears prominent due in part to technique. No acute osseous abnormalities. [facility]-[id number] Procedure Note Interface, Radiology Results Incoming - 05/24/2018 12:10 AM CDT EXAMINATION: XR CHEST 1 VW PORTABLE CLINICAL HISTORY: Chest Pain COMPARISON: None. IMPRESSION: The lungs are clear. No pleural effusion or pneumothorax. Cardiac silhouette appears prominent due in part to technique. No acute osseous abnormalities. [facility]-[id number] Performing Organization Address City/[facility] Mex[facility]ode Phone Number [facility] [address] [place] [address] * ECG ED Preliminary Interpretation - NOT AN ORDER (05/23/2018 11:43 PM CDT) Narrative Performed At Jimbo Bowers MD 05/25/20182:16 PM ECG ED Preliminary Interpretation - Not an Order Performed by: JIMBO BOWERS Authorized by: JIMBO BOWERS ECG reviewed by ED Physician in the absence of a splunk architect: yes Previous ECG: Previous ECG:Unavailable Interpretation: Interpretation: [...] Phone Address Plan / Group [facility] xxxxxxxxxxx O Advance Directives Patient has advance care planning documents on file. For more information, m[place] contact: Ike Nieves [address] [place] [address]
== END | disposition home or self-care (01) ==
LOC: OR 08:04
PROVIDERS: ATTEND Podiatrist Foot & Ankle Surgery
DX: M20.11 Hallux valgus (acquired), right foot (principal); M20.21 Hallux rigidus, right foot; M20.5X1 Other deformities of toe(s) (acquired), right foot; M21.271 Flexion deformity, right ankle and toes; M20.41 Other hammer toe(s) (acquired), right foot; R00.1 Bradycardia, unspecified; M79.671 Pain in right foot; I45.10 Unspecified right bundle-branch block; Z01.810 Encounter for preprocedural cardiovascular examination; Z86.711 Personal history of pulmonary embolism; Z86.11 Personal history of tuberculosis
CPT/HCPCS: 28299; 28308; C1713 ×5; J0131; J0690; J1100; J1885; J2001; J2250; J2405; J2704; Q4150